=== PATIENT | female | born 1960 | race African-American/Black ===

== ENCOUNTER 2020-10-31 19:23 | Inpatient (IN) | payer BC, OTHER ==
[~2020-10-31] VITALS: Ht 162.6 cm; Wt 77.6 kg
[~2020-10-31 19:23] MED LIST: GLIPIZIDE; LOSARTAN; METFORMIN; SIMVASTATIN
[2020-10-31] MEDS ORDERED: GLUCAGON,HUMAN RECOMBINANT 1MG/VIAL IM ONE (19:45)
[2020-10-31] MEDS ORDERED: DEXTROSE 50% WATER 50ML SYRINGE IV ONE (19:45)
[2020-10-31] MEDS ORDERED: LEVETIRACETAM 1000MG PREMIX 100 ML IV ONE (20:00)
[2020-10-31] MEDS ORDERED: DEXT 10% WATER 1,000 ML IV SCH (20:00)
[2020-10-31 22:50] LABS: BASOPHILS % 0.4 % (0.0-2.0); EOSINOPHILS % 0.1 % (0.0-5.0); HEMATOCRIT. 30.4 % (36.0-48.0); HEMOGLOBIN. 8.6 g/dL (12.0-16.0); LYMPHOCYTES % 10.2 % (20.0-50.0); MEAN CORPUSCULAR HEMOGLOBIN 17.6 pg (28.0-32.0); MEAN CORPUSCULAR VOLUME 61.9 fL (81.0-99.0); MEAN PLATELET VOLUME 8.3 fl (7.4-10.4); MONOCYTES % 4.3 % (2.0-8.0); PLATELET 636 x1000/uL (130-400); RED BLOOD CELL COUNT 4.91 mill/uL (4.2-5.4); RED CELL DISTRIBUTION WIDTH 23.4 % (11.6-14.6)
[2020-10-31 23:00] LABS: CHLORIDE 107 mEq/L (98-107)
[2020-10-31 23:04] LABS: ETHANOL BLOOD < 10 mg/dL; PLATELET ESTIMATE INCREASED
[2020-11-01] MEDS ORDERED: DEXT 5%/0.9% NACL 1,000 ML IV ONE (00:30)
[2020-11-01 01:01] LABS: CLARITY URINE CLEAR (CLEAR); COLOR URINE YELLOW (YELLOW); KETONES URINE NEGATIVE (NEGATIVE); LEUKOCYTE ESTERASE URINE NEGATIVE (NEGATIVE); NITRITE URINE NEGATIVE (NEGATIVE); OCCULT BLOOD URINE 1+ (NEGATIVE); PH URINE 5.5 (4.5-8.0); PROTEIN URINE 3+ (NEGATIVE); SPECIFIC GRAVITY URINE 1.012 (1.005-1.030)
[2020-11-01] MEDS ORDERED: DEXT 5%/0.9% NACL 1,000 ML IV SCH (01:15)
[2020-11-01 01:18] LABS: *AMPHETAMINES SCREEN URINE NEGATIVE (NEGATIVE); *BARBITURATES SCREEN URINE NEGATIVE (NEGATIVE); *BENZODIAZEPINES SCREEN URINE PRESUMTIVE POSITIVE (NEGATIVE)
[2020-11-01 01:19] LABS: *COCAINE SCREEN URINE NEGATIVE (NEGATIVE); CANNABINOID URINE SCREEN NEGATIVE (NEGATIVE); METHADONE URINE SCREEN NEGATIVE (NEGATIVE); OPIATES URINE SCREEN NEGATIVE (NEGATIVE); PHENCYCLIDINE URINE SCREEN NEGATIVE (NEGATIVE)
[2020-11-01 08:00] VITALS: BP_SYST 119; BP_SYST 169; BP_DIAS 53; BP_DIAS 94
[2020-11-01 08:45] VITALS: BP 196/94
[2020-11-01] MEDS ORDERED: LORAZEPAM 2MG/ML CPJ IV PRN (09:15)
[2020-11-01] MEDS: AMLODIPINE 10MG TABLET PO SCH (09:15)
[2020-11-01] MEDS ORDERED: ONDANSETRON HCL 4MG/2ML INJ IV PRN (09:15)
[2020-11-01] MEDS ORDERED: ACETAMINOPHEN 325MG TABLET PO PRN (09:15)
[2020-11-01] MEDS ORDERED: LISI-648 MT (10:45)
[2020-11-01] MEDS ORDERED: FURO-152 PO (10:45)
[2020-11-01] MEDS ORDERED: GLIP5TAB12 PO (10:45)
[2020-11-01] MEDS ORDERED: ASPI-1497 MT (10:45)
[2020-11-01] MEDS ORDERED: LANTUSUD SUBCUT (10:45)
[2020-11-01 12:00] VITALS: BP 160/97
[2020-11-01] MEDS ORDERED: DEXTROSE 50% WATER 50ML SYRINGE IV PRN (12:15)
[2020-11-01] MEDS ORDERED: CLONIDINE 0.1MG TABLET PO PRN (12:45)
[2020-11-01] MEDS: LISINOPRIL 10MG TABLET PO SCH (12:55)
[2020-11-01] MEDS: BLOOD SUGAR DIAGNOSTIC STRIP TEST SCH ×2 (17:10→21:00)
[2020-11-01] MEDS ORDERED: IPRATROPIUM/ALBUTEROL 0.5-3(2.5)MG/3ML NEB HHN PRN (18:45)
[2020-11-01] MEDS ORDERED: FUROSEMIDE 20MG/2ML VIAL IVP NR (18:45)
[2020-11-01 19:47] LABS: TOTAL IRON BINDING CAPACITY 274 ug/dL (250-450)
[2020-11-01 20:00] VITALS: BP 164/85
[2020-11-01] MEDS: PIPERACILLIN/TAZOBACTAM 3.375 G in DEXTROSE 5% WATER 50 ML IV SCH (21:14)
[2020-11-01] MEDS: LEVETIRACETAM 500MG TABLET PO SCH (21:14)
[2020-11-01 23:56] VITALS: BP 161/80
[2020-11-02 04:00] VITALS: BP 151/85
[2020-11-02] MEDS: PIPERACILLIN/TAZOBACTAM 3.375 G in DEXTROSE 5% WATER 50 ML IV SCH ×4 (04:36→20:21)
[2020-11-02] MEDS: BLOOD SUGAR DIAGNOSTIC STRIP TEST SCH ×4 (05:24→20:34)
[2020-11-02 06:31] LABS: BASOPHILS % 1.6 % (0.0-2.0); EOSINOPHILS % 1.9 % (0.0-5.0); HEMATOCRIT. 29.8 % (36.0-48.0); HEMOGLOBIN. 8.6 g/dL (12.0-16.0); MEAN CORPUSCULAR VOLUME 62.4 fL (81.0-99.0); MEAN PLATELET VOLUME 6.7 fl (7.4-10.4); NEUTROPHILS % 47.5 % (40.0-76.0); PLATELET 728 x1000/uL (130-400); RED BLOOD CELL COUNT 4.78 mill/uL (4.2-5.4)
[2020-11-02 06:39] LABS: CHLORIDE 107 mEq/L (98-107)
[2020-11-02 08:00] VITALS: BP 142/84
[2020-11-02] MEDS: AMLODIPINE 10MG TABLET PO SCH (08:14)
[2020-11-02] MEDS: LEVETIRACETAM 500MG TABLET PO SCH ×2 (08:14→21:21)
[2020-11-02] MEDS: LISINOPRIL 10MG TABLET PO SCH (08:14)
[2020-11-02 12:00] VITALS: BP 137/73
[2020-11-02] MEDS: FERROUS SULFATE 325MG TABLET PO SCH ×2 (13:13→17:21)
[2020-11-02] MEDS: DOCUSATE SODIUM 100MG CAPSULE PO SCH ×2 (13:14→17:21)
[2020-11-02 16:00] VITALS: BP 146/79
[2020-11-02 21:00] VITALS: BP 140/51
[2020-11-03] VITALS: BP 157/90
[2020-11-03] MEDS: PIPERACILLIN/TAZOBACTAM 3.375 G in DEXTROSE 5% WATER 50 ML IV SCH ×2 (02:27→08:30)
[2020-11-03 03:22] VITALS: BP 141/68
[2020-11-03] MEDS: BLOOD SUGAR DIAGNOSTIC STRIP TEST SCH ×2 (05:07→12:03)
[2020-11-03] MEDS: FERROUS SULFATE 325MG TABLET PO SCH ×2 (07:40→12:40)
[2020-11-03 08:00] VITALS: BP 153/86
[2020-11-03] MEDS: AMLODIPINE 10MG TABLET PO SCH (08:29)
[2020-11-03] MEDS: LEVETIRACETAM 500MG TABLET PO SCH (08:30)
[2020-11-03] MEDS: LISINOPRIL 10MG TABLET PO SCH (08:30)
[2020-11-03] MEDS: DOCUSATE SODIUM 100MG CAPSULE PO SCH (08:33)
[2020-11-03] MEDS ORDERED: LEVO500T89 MT (09:18)
[2020-11-03] MEDS ORDERED: FERR325T23 PO (09:18)
[2020-11-03] MEDS ORDERED: DOCU-150 PO (09:18)
[2020-11-03 10:39] VITALS: BP 143/76
[2020-11-03 12:00] VITALS: BP 144/82
== END 2020-11-03 16:45 | disposition home or self-care (01) | DRG 420 ==
LOC: ER 19:23 → MICUSO 11-01 00:13 → 8WST 11-01 07:43
PROVIDERS: ADMIT Internal Medicine; ATTEND Internal Medicine
DX: E11.649 Type 2 diabetes mellitus with hypoglycemia without coma (principal); J96.00 Acute respiratory failure, unspecified whether with hypoxia or hypercapnia; G93.41 Metabolic encephalopathy; E43 Unspecified severe protein-calorie malnutrition; J18.9 Pneumonia, unspecified organism; R56.9 Unspecified convulsions; Z20.822 Contact with and (suspected) exposure to COVID-19; I10 Essential (primary) hypertension; Z79.4 Long term (current) use of insulin
CPT/HCPCS: 36415; 71045; 80048; 80053; 80305; 80320; 81003; 82728; 82962; 83036; 83540; 83550; 83880; 85025; 87426; 93005; 99291; J1610; J1940; J1953; J2543; J7042; J7060; G0480